=== PATIENT | male | born 1970 | race Caucasian/White ===

== ENCOUNTER → 2024-03-20 16:03 | Outpatient (BNVA) | payer OTHER, SELFPAY | PROVIDERS: Family Provider Family Medicine; Visit Provider Nurse Practitioner | DX: J10.1 Influenza due to other identified influenza virus with other respiratory manifestations (principal) | CPT/HCPCS: 87400 ==

== ENCOUNTER → 2024-09-05 08:23 | Outpatient (BNVA) | payer SELFPAY | PROVIDERS: Family Provider Family Medicine; PCP Nurse Practitioner; Visit Provider Orthopaedic Surgery | DX: M51.360 Other intervertebral disc degeneration, lumbar region with discogenic back pain only (principal); M46.96 Unspecified inflammatory spondylopathy, lumbar region; M17.12 Unilateral primary osteoarthritis, left knee; M23.302 Other meniscus derangements, unspecified lateral meniscus, unspecified knee | CPT/HCPCS: 72110; 73560; 73565 ==

== ENCOUNTER 2024-09-05 14:24 | Outpatient (CLI) | payer SELFPAY | END 2024-09-05 14:25 | disposition home or self-care (01) | LOC: SPT 14:24 | PROVIDERS: Family Provider Family Medicine; PCP Nurse Practitioner; Visit Provider Student in an Organized Health Care Education/Training Program | DX: Z46.89 Encounter for fitting and adjustment of other specified devices (principal); M23.301 Other meniscus derangements, unspecified lateral meniscus, left knee | CPT/HCPCS: L1812 ==